=== PATIENT | male | born 1960 | race Caucasian/White ===

== ENCOUNTER 2017-12-27 10:40 | Emergency (ER) | payer OTHER ==
[2017-12-27] MEDS: DIPHTH/TET/ACEL PERTUSS (ADULT) 0.5 ML VIAL IM* (13:01)
== END 2017-12-27 13:31 | disposition home or self-care (01) ==
LOC: FTE 10:40
DX: S91.312A Laceration without foreign body, left foot, initial encounter (principal); S92.902A Unspecified fracture of left foot, initial encounter for closed fracture; W26.8XXA Contact with other sharp object(s), not elsewhere classified, initial encounter; Y92.9 Unspecified place or not applicable; Z23 Encounter for immunization
CPT/HCPCS: 12001; 73630-LT; 90471; 90715; 99283-25

== ENCOUNTER 2017-12-31 09:33 | Emergency (ER) | payer OTHER | END 2017-12-31 10:58 | disposition home or self-care (01) | LOC: FTE 09:33 | DX: S92.425A Nondisplaced fracture of distal phalanx of left great toe, initial encounter for closed fracture (principal); S90.112A Contusion of left great toe without damage to nail, initial encounter; X58.XXXA Exposure to other specified factors, initial encounter; Y92.9 Unspecified place or not applicable | CPT/HCPCS: 99283; Z7502 ==